=== PATIENT | male | born 1960 | race Caucasian/White ===

== ENCOUNTER → 2021-10-08 11:29 | Outpatient (CLI) | payer OTHER, SELFPAY ==
--- NOTE | ~2021-10-08 | MR_ITS ---
EXAMINATION: MR brain IAC wo/w con DATE: 10/08/2021 12:29 INDICATION: Dizziness. Tinnitus. TECHNIQUE: Magnetic resonance imaging (MRI) of the brain, brainstem, and internal auditory canals was performed without and with 20 mL MultiHance intravenous contrast. COMPARISON: None. FINDINGS: There are scattered areas of nonspecific increased T2-weighted signal intensity in the cere bral white matter, which is within normal limits for the patient's age. There is no intracranial hemo rrhage, acute infarction, or abnormal intracranial mass lesion. The ventricles are normal in size. Th ere is mild mucosal thickening in the paranasal sinuses. The orbits are normal. There is a trace left mastoid effusion. The internal auditory canals and inner and middle ears are normal. IMPRESSION: 1. Normal aging brain. Reviewed, dictated and finalized at location B. IMPRESSION: 1. Normal aging brain.
[2021-10-08 11:57] LABS: Estimated Glomerular Filt Rate > 60
== END ==
PROVIDERS: PCP Family Medicine; Visit Provider Family Medicine
DX: H93.19 Tinnitus, unspecified ear (principal); H53.8 Other visual disturbances; R51.9 Headache, unspecified
CPT/HCPCS: 70553; A9577

== ENCOUNTER → 2022-08-06 08:32 | Outpatient (CLI) | payer BC, SELFPAY ==
--- NOTE | ~2022-08-06 | MR_ITS ---
MRI of the lumbar spine Clinical History: Abnormal lumbar spine x-ray Technique: Axial T2-weighted images, and sagittal T1-weighted, T2-weighted, and T2 fat-sat images wer e acquired. Findings: There is no fracture or subluxation of the lumbar spine. Vertebral bodies maintain normal h eight and alignment. No suspicious bone marrow signal abnormality seen. There is minimal disc bulge at L1-L2. There is facet arthropathy. No tiera spinal canal stenosis or n eural foraminal narrowing. At L2-L3, there is no disc bulge or herniation. There is minimal facet joint hypertrophy. No spinal c anal stenosis or neural foraminal narrowing. L3-L4, there is no disc bulge or herniation. There is mild facet arthropathy. No spinal canal stenosi s. There is minimal left neural foraminal narrowing. At L4-L5, there is minimal disc bulge with facet arthropathy. No spinal canal stenosis. Neural forami na are preserved. At L5-S1, there is minimal disc bulge. There is mild facet joint degenerative change. No spinal canal stenosis. There is moderate left neural foraminal narrowing and mild right neural foraminal narrowin g. Paravertebral soft tissues are unremarkable. Impression: Mild degenerative spondylosis, as above. Reviewed, dictated and finalized at location M. Impression: Mild degenerative spondylosis, as above.
== END ==
PROVIDERS: PCP Family Medicine; Visit Provider Family Medicine
DX: M47.816 Spondylosis without myelopathy or radiculopathy, lumbar region (principal)
CPT/HCPCS: 72148

== ENCOUNTER 2023-08-03 10:39 | Outpatient (CLI) | payer BC, SELFPAY ==
--- NOTE | ~2023-08-03 | US_ITS ---
EXAMINATION: US carotid duplex BI DATE: 08/03/2023 11:12 INDICATION: Dizziness. Tinnitus. TECHNIQUE: Grayscale, color Doppler, and pulsed Doppler images of the cervical carotid arteries were obtained. The degree of vessel stenosis is placed in one of the following categories: normal, <50%, 5 0-69%, >=70% but less than near-occlusion, near-occlusion, or total occlusion. Note that percent sten osis relative to normal distal artery lumen diameter is indirectly measured from velocity measurement s as described by George, et al. Radiology 2003; [id number]. COMPARISON: None. FINDINGS: RIGHT: The right common carotid artery (CCA) peak systolic velocity (PSV) is 74 cm/s. The right internal car otid artery (ICA) PSV is 56 cm/s. The right ICA end-diastolic velocity (EDV) is 23 cm/s. The right IC A/CCA PSV ratio is 0.8. Grayscale and color Doppler images yield an estimate of <50% diameter reducti on from plaque in the ICA. There is antegrade flow in the right vertebral artery. LEFT: The left CCA PSV is 74 cm/s. The left ICA PSV is 60 cm/s. The left ICA EDV is 16 cm/s. The left ICA/C CA PSV ratio is 0.8. Grayscale and color Doppler images yield an estimate of <50% diameter reduction from plaque in the ICA. There is antegrade flow in the left vertebral artery. IMPRESSION: 1. <50% stenosis in the right internal carotid artery. 2. <50% stenosis in the left internal carotid artery. Reviewed, dictated and finalized at location A.
== END 2023-08-03 10:40 ==
LOC: MICIMG 10:40
PROVIDERS: PCP Family Medicine; Visit Provider Family Medicine
DX: E53.8 Deficiency of other specified B group vitamins (principal); E11.65 Type 2 diabetes mellitus with hyperglycemia; M10.9 Gout, unspecified; E78.2 Mixed hyperlipidemia; E55.9 Vitamin D deficiency, unspecified; I10 Essential (primary) hypertension; K21.9 Gastro-esophageal reflux disease without esophagitis; H93.19 Tinnitus, unspecified ear; H90.3 Sensorineural hearing loss, bilateral; R42 Dizziness and giddiness; I65.23 Occlusion and stenosis of bilateral carotid arteries
CPT/HCPCS: 93880